=== PATIENT | female | born 1975 | race Caucasian/White ===

== ENCOUNTER 2019-10-02 09:54 | Day surgery (SDC) | payer SELFPAY ==
[2019-09-26 13:32] LABS: Hematocrit 37.7 % (37-47); Hemoglobin 11.4 g/dL (12.0-15.0); Mean Corp Hgb Conc 30.2 g/dL (32-36); Mean Corpuscular Hgb 24.3 pg (27.0-32.0); Mean Corpuscular Volume 80.2 fL (81-99); Mean Platelet Vol. 9.1 fl (6.2-12.0); Platelet Count 539 K/mm3 (150-450); RBC Distribution Width CV 15.2 % (11.6-14.6); RBC Distribution Width SD 43.9 fl (35.1-43.9); White Blood Count 8.7 K/mm3 (4.4-11.0)
[2019-09-26 13:41] LABS: International Normalized Ratio 1.1; Prothrombin Time (Protime)PT. 13.7 SECONDS (11.7-14.9)
[2019-09-26 13:43] LABS: Partial Thromboplast Time 27.5 Seconds (24.1-36.2)
--- NOTE | 2019-10-02 06:09 | HP.PCM_ITS ---
- Problem List (1) Abnormal uterine bleeding due to endometrial polyp Status: Acute History and Physical Date of Admission: 10/02/19 Surgical History and Physical Date: 10/02/2019 Name: JULIANA GANT Age: 44 Date of : 1975 Juliana Gant, a 44 year old female 6 0 0 0 6, presents for Hysteroscopy, dilation and curettage, Symphion polypectomy, Breonna Endometrial ablation on October 02, 2019 at 8:30. -- Juliana is being seen for pre op visit. Pt to have hs, D and C with Symphion and Breonna with Dr. Yahaira Stewart 10/02/19. Pt has irregular ad heavy cycles. US prior also showed polyp and fibroids. Medications and allergies are up to date. Consents signed and reviewed for surgery. AM Heavy menstrual bleeding with cramping which began 6 months ago. Juliana claims it started Gradually and has been present 6 months. It occurs With each men strual cycle. It is located in the Uterus. Juliana characterizes it to be downward to groin and pelvis.; Juliana characterizes it to be down to the legs. Juliana characterizes the quality cramping. Severity is moderate MEDICATIONS HISTORY: Patient is also takin. No Meds ALLERGIES: No Known Drug Allergies Infections - Proven immunity to Varicella Illnesses - none Accidents - no injuries of consequence Hospitalizations - Childbirth Review of Systems: GENERAL - Denies fever, or chills SKIN - Denies skin changes EYES - Denies visual changes EARS - Denies difficulty hearing NOSE - Denies nasal congestion or bleeding MOUTH - Denies sore throat or difficulty swallowing NECK - Denies pain or swelling RESPIRATORY - Denies shortness of breath or wheezing CARDIOVASCULAR - Denies palpitations or chest pain GASTROINTESTINAL - Denies nausea, vomiting, diarrhea, constipation GENITOURINARY - Denies dysuria, frequency of urination, incontinence of urine MUSCULOSKELETAL - Denies joint or muscle pain NEUROLOGICAL - Denies localized numbness or weakness PSYCHIATRIC - Denies depression or anxiety ENDOCRINE - Denies heat or cold intolerance, weight loss or gain HEMATO-IMMUNOLOGIC - Denies excesive bleeding with cuts SOCIAL HISTORY: Alcohol Use - denies drinking Smoking - denies smoking Diet - no special diet Lifestyle - Employer - Homemaker Illicit Drug Use - denies use of street drugs Sexual Activity - Spouse-Sig Other Name - Shakeel Spouse-Sig Other Occupation - Printer Children Name(s) - Carrie, Natty, Wei, Siddhartha, Sulma, Clover Control - NFP FAMILY HISTORY: MENSTRUAL HISTORY: LMP Known?- DefiniteAmount/Duration - 5-6 DAYS, Regularity - Irregular, Frequency - variable days, LMP - 09/03/19, Age Onset Menarche - 13 PAST PREGNANCIES: Total Pregnancies - 6; Full Term Pregnancies - 6; Premature - 0; Abortions, Induced - 0; Abortions, Spontaneous - 0; Ectopics - 0; Multiple Births - 0; Living Children - 6 SURGICAL HISTORY: 1. none ; - PHYSICAL EXAM BP- 130/70 Sitting, Right arm, regular cuff Temp- 98.2 Weight- 146.31400 lbs Height- 61.50 inch BMI:27.31 CONSTITUTIONAL - NAD, well nourished, and well developed SKIN - No rash, lesions, or ulcers HEENT - normocephalic, atraumatic, sclerae anicteric LUNGS - CTA x2 without wheezes, crackles or rales CARDIAC - Regular rate and rhythm without rubs, murmurs, or gallops NEUROLOGICAL - normal gait, normal balance, normal motor PSYCHIATRIC - A and O to time, place, person, mood and affect ULTRASOUND 09/09/19 UTERUS: 10 x 5.3 x 4.8cm. ENDOMETRIAL ECHO: 2.8mm anterior endo=1.2mm. posterior endo=1.6mm. RIGHT OVARY: 2.6 x 1.7 x 1.7cm. LEFT OVARY: 2.3 x 2.6 x 1.6cm. follicle seen measures 1 x 1.4 x 1.2cm. BLADDER: No bladder masses visualized. FREE FLUID: NONE. OTHER PERTINENT FINDINGS: endometrial polyp seen measures .6cm. small amount of fluid seen in endo. anterior subserous fibroid seen. ASSESSMENT/PLAN: 1. Excessive Bleeding In The Premenopausal Period and Polyp Of Corpus UterI Reviewed US findings, normal anatomy and menstrual physiology Indication for hysteroscopy, dilation and curettage, polypectomy reviewed. Procedural r/b reviewed, including potential for further surgery possibly hysterectomy. No plans for future childbearing at this time, discussed hormonal contraception including LVG IUD, endometrial ablation to further control bleeding apart from polypectomy Following discussion, will plan for hysteroscopy, dilation and curettage, polypectomy. NO ABLATION
[2019-10-02 10:32] LABS: Internal QC Validated? YES +Cl - CLEAR BKGD; Pregnancy, Urine Negative Negative
[2019-10-02 10:35] VITALS: BP 134/81; PULSE 77; RESP 18; TEMP 37.4; O2SAT 100; BMI 26.0
[2019-10-02] MEDS: Lactated Ringers 1,000 ML 100 ML IV (10:59)
--- NOTE | 2019-10-02 11:30 | EMB_PTH ---
PATIENT: KEITH HOYOS LOC: [facility] [place] U#:[id number] AGE/SX: 44/F ROOM: RE10/02/[address]: Dr. Juliet Stewart MD : 1975 BED: DIS: 10/02/2019 SPEC #: [id number] RECD: 10/02/19 13:14 STATUS: KEL ANGELICA #: [id number] BECKY: 10/02/19 11:[address]: Juliet Flowers DEPT: SURGICAL PATHOLOGY RECD BY: Wei Dunaway ENTERED: 10/02/19 13:51 SP TYPE: ENDOM BX/C CARIDAD DR: Dr. Don Burroughs MD Tissues: Endometrium, NOS Procedures: Surgery Specimen Level IV HEADER OPERATION: Hysteroscopy, Symphion D & C, Breonna PRE-OP DIAGNOSIS: Endometrial polyp TISSUE SUBMITTED: Endometrial curettings MICROSCOPIC DIAGNOSIS Endometrial curettings: Proliferative endometrium with glandular and stromal breakdown. Fragments of myometrium. SJ:terrie 10/03/19 MICROSCOPIC DESCRIPTION Slides are reviewed. GROSS DESCRIPTION Received in fixative is one container labeled with the patient's name and designated endometrial curettings. The specimen consists of multiple fragments of gil-pink hemorrhagic soft tissue that in aggregate measure 3 x 2.5 x 0.3 cm. The specimen is totally submitted in one cassette. / CLAUDIA:terrie 10/02/19 TC:5 CPT: 90182
--- NOTE | 2019-10-02 13:02 | OP.PCM_ITS ---
Problem List (1) Abnormal uterine bleeding due to endometrial polyp Status: Acute Report of Operation Date of Procedure: 10/02/19 Pre-Operative Diagnosis: Abnormal uterine bleeding, endometrial polyp Post-Operative Diagnosis: Abnormal uterine bleeding, endometrial polyp Surgery/Procedure Performed:: Hysteroscopy, dilation and curettage, polypectomy Description of Surgical Findings:: candidate for TVH Mild rectocele delinquent tax collection assistant: None Type of Anesthesia:: MAC Anesthesiologist: Charles Crabtree Specimen's removed: endometrial curettings Estimated Blood Loss (mL): 10 Fluids Replaced: 600 ml Description of Procedure: Patient was brought to the operating room and placed in dorsal supine position. She was induced under MAC anesthesia and repositioned into dorsal lithotomy. An examination under anesthesia was performed. The perineum was prepped and drape in sterile fashion. Straight catheterization of the bladder performed. A weight speculum was placed vaginally and the cervix grasped at the anterior lip using a Smith's tenaculum. The cervix was subsequently dilated and hysteroscopy performed using the Symphion scope demonstrating polypoid tissue on a tenuous stalk, with otherwise normal uterine cavity shape and normal tubal ostia bilaterally. The Symphion resectoscope was used to remove the polyp as well as sample the lining. The Symphion operative hysteroscope was removed and sharp curettage performed. Hysteroscopy was again performed demonstrating integrity of the uterine cavity. The procedure was complete. The hysteroscope was removed as was the tenaculum. The tenaculum site was hemostatic. The patient was repositioned into dorsal supine, awakened, and transferred to the recovery room without complication. Sponge counts were correct x 2. - Complications none - Admit VTE Documentation VTE Present on Admission: No VTE Mechan Device Prophylaxis: [facility] Pharm Prophylaxis ordered?: No
[2019-10-02 13:05] VITALS: BP 117/76; BP 134/81; PULSE 78; RESP 18; TEMP 36.2; O2SAT 100
[2019-10-02 13:10] VITALS: BP 121/67; BP 134/81; PULSE 72; RESP 18; O2SAT 100
[2019-10-02 13:15] VITALS: BP 112/72; BP 134/81; PULSE 73; RESP 18; O2SAT 100
[2019-10-02 13:20] VITALS: BP 122/75; BP 134/81; PULSE 77; RESP 18; TEMP 36.3; O2SAT 99
--- NOTE | 2019-10-02 14:58 | DCINST_ITS ---
Discharge Diet: No Restrictions Discharge Activity: Return to Normal Activity, May Shower, - - No tub bath for 1- 2 weeks May resume sexual activity in: - - 2-4 weeks Call your doctor if you observe: Fever of 101 or Higher, Inability to urinate, Inability to have a bowel movement, Using more than one pad per hour, Shortness of breath, Chest pain, Calf discomfort, Uncontrolled pain Allergies/Adverse Reactions: Allergies No Known Allergies Allergy (Verified 09/25/19 08:20) Medications to take at Discharge NK 09/25/19 Primary Care Physician: Don Burroughs MD [Primary Care Provider] - Test Results: Test results from this visit will be discussed in further detail at your follow- up appointment, if applicable. Please Follow Up With: Juliet Marie MD When: 2-4 weeks
[2019-10-02 15:10] VITALS: BP 134/81
== END 2019-10-02 15:21 | disposition home or self-care (01) ==
LOC: SDC 10:00 → AC 10:16
PROVIDERS: PCP Family Medicine; Referring Provider Obstetrics & Gynecology; Visit Provider Obstetrics & Gynecology
PROC: 0U5B8ZZ Destruction of Endometrium, Via Natural or Artificial Opening Endoscopic (ICD-10-PCS; CPT 58558; principal; 2019-10-02 11:15)
DX: N84.0 Polyp of corpus uteri (principal); N92.4 Excessive bleeding in the premenopausal period
CPT/HCPCS: 58558; 81025; 85027; 85610; 85730; 86850; 86900; 86901; 88305; J7120

== ENCOUNTER → 2019-12-31 14:53 | Outpatient (CLI) | payer SELFPAY ==
[2019-12-31 15:55] LABS: Absolute Lymphocyte Count 1.67 X10^3/uL (0.83-4.51); Absolute Neutrophil Count 7.1 X10^3/uL (2.0-7.7); Basophil# 0.01 X10^3/uL; Basophil% 0.1 % (0-1); Eosinophil# 0.07 X10^3/uL; Eosinophils% 0.7 % (0-5); Hematocrit 38.6 % (37-47); Hemoglobin 12.4 g/dL (12.0-15.0); Lymphocyte # 1.67 X10^3/ul (4.0); Lymphocyte % 17.7 % (19-41); Mean Corp Hgb Conc 32.1 g/dL (32-36); Mean Corpuscular Volume 83.9 fL (81-99); Mean Platelet Vol. 9.3 fl (6.2-12.0); Monocyte# 0.53 X10^3/uL; Monocyte% 5.6 % (0-10); NRBC Flagged by Analyzer 0 % (0-5); Neutrophil # 7.12 X10^3/uL (2.7-7.7); Neutrophil % 75.6 % (47-70); Platelet Count 452 K/mm3 (150-450); RBC Distribution Width CV 19.7 % (11.6-14.6); RBC Distribution Width SD 59.9 fl (35.1-43.9); White Blood Count 9.4 K/mm3 (4.4-11.0)
[2019-12-31 16:02] LABS: Color, Urine Yellow (Yellow); Glucose, Dipstick Normal (Normal); Ketone-Dipstick Negative (Negative); Leukocyte Esterase-Dipstick Negative /ul (Negative); Nitrite-Dipstick Negative (Negative); Occult Blood-Urine Negative /ul (Negative); Protein-Dipstick Negative (Negative); Specific Gravity, Urine 1.015 (1.002-1.030); Urine Bilirubin Dipstick Negative (Negative); Urine Clarity Clear (Clear); Urine Urobilinogen Normal (Normal)
[2019-12-31 16:14] LABS: Amphetamine Urine VISTA NEGATIVE (<1000 ng/mL); Barbiturate Urine VISTA NEGATIVE (< 200 ng/mL); Benzodiazepine Urine VISTA NEGATIVE (< 200 ng/mL); Cocaine Urine VISTA NEGATIVE (< 300 ng/mL); Ecstacy Urine VISTA NEGATIVE (< 500 ng/mL); Methadone Urine VISTA NEGATIVE (< 300 ng/mL); PCP Urine VISTA NEGATIVE (< 25 ng/mL); THC Urine VISTA NEGATIVE (< 50 ng/mL); Vista UDS pH Range 6
[2019-12-31 16:34] LABS: Thyroid Stim Hormone (TSH) 0.83 uIU/mL (0.358-3.74)
[2019-12-31 18:40] LABS: Chlamydia Trachomatis by PCR Negative (Negative); Neisserai gonorrhoeae by PCR Negative (Negative); Probe Check PASS; Sample Adequacy Control PASS; Specimen Processing Control PASS
[2020-01-01 00:55] LABS: Prenatal RPR NONREACTIVE (NONREACTIVE)
[2020-01-01 09:45] LABS: HIV - WCH Non-Reactive (Nonreactive); Hepatitis B Surface Antigen Non-Reactive (Nonreactive); Hepatitis C Antibody Non-Reactive (Nonreactive); Rubella IgG 117.6 IU/mL; Vitamin D,25 Hydroxy 19.4 ng/mL
[2020-01-05 16:21] LABS: HPV APTIMA, High Risk Negative (Negative)
== END ==
PROVIDERS: PCP Family Medicine; Visit Provider Obstetrics & Gynecology
DX: Z34.81 Encounter for supervision of other normal pregnancy, first trimester (principal); Z11.3 Encounter for screening for infections with a predominantly sexual mode of transmission; Z12.4 Encounter for screening for malignant neoplasm of cervix
CPT/HCPCS: 36415; 80307; 81002; 82306; 84443; 85025; 86703; 86762; 86803; 87340; 87491; 87591; 87624; 88175; G0145

== ENCOUNTER → 2020-04-15 13:48 | Outpatient (CLI) | payer SELFPAY ==
[2020-04-06 14:36] VITALS: BMI 29.2
--- NOTE | 2020-04-15 13:50 | ECHOD_ITS ---
Reason For Study: Chest pain Procedure This was a 2D Doppler, Color Flow transthoracic echocardiogram. Exam performed in department. Left Ventricle Normal LV size. The estimated ejection fraction is 65 %. No evidence for diastolic dysfunction. No regional wall motion abnormalities noted. Right Ventricle Normal RV size. Normal systolic function. Atria Normal left atrium. Normal right atrium. No doppler evidence for ASD. Mitral Valve There is no mitral valve stenosis. Trivial mitral valve insufficiency. Tricuspid Valve There is no tricuspid stenosis. Trivial tricuspid valve insufficiency. Pulmonary artery systolic pressure is 30 mmHg. Aortic Valve Trisinus/trileaflet aortic valve. There is no aortic stenosis. No aortic valve insufficiency. Pulmonic Valve There is no pulmonic valvular stenosis. No pulmonic valve insufficiency. Great Vessels Normal aortic root. Pericardium/Pleural No pericardial effusion. MMode/2D Measurements & Calculations LVIDd: 4.2 cm IVSd: 1.0 cm Ao root diam: 2.6 cm LVIDs: 2.2 cm LVPWd: 0.83 cm RVDd: 2.9 cm FS: 48.3 % LAV(MOD-bp): 43.7 ml LVAd ap4: 24.7 cm2 SV(MOD-sp4): 45.0 ml LAV(MOD-bp) Indexed: 25.2 ml/m2 EDV(MOD-sp4): 67.4 ml LAV(MOD-sp2): 50.7 ml EDV(sp4-el): 67.9 ml LAV(MOD-sp4): 32.3 ml LVAs ap4: 12.6 cm2 ESV(MOD-sp4): 22.4 ml ESV(sp4-el): 22.1 ml EF(MOD-sp4): 66.8 % EF(sp4-el): 67.5 % SV(sp4-el): 45.8 ml LA A4 area: 13.2 cm2 LA dimension(2D): 3.3 cm RA A4 area: 13.9 cm2 Doppler Measurements & Calculations MV E max олег: 112.3 cm/sec Lat Peak E' Олег: 12.7 cm/sec Med Peak E' Олег: 13.1 cm/sec MV A max олег: 68.6 cm/sec E/E' lat: 8.8 E/E' med: 8.6 MV E/A: 1.6 Ao V2 max: 157.7 cm/sec LV V1 max: 115.9 cm/sec PA V2 max: 105.8 cm/sec Ao max P.0 mmHg LV V1 max P.4 mmHg TR max олег: 225.8 cm/sec TR max P.5 mmHg Interpretation Summary The estimated ejection fraction is 65 %. No evidence for diastolic dysfunction. Trivial mitral valve insufficiency. Ordering Physician: Curt Barrios Referring Physician: Don Burroughs Performed By: Gloria Nagy RDCS
== END ==
PROVIDERS: PCP Family Medicine; Referring Provider Specialist; Visit Provider Specialist
DX: R07.9 Chest pain, unspecified (principal)
CPT/HCPCS: 93306

== ENCOUNTER → 2020-05-04 17:59 | Outpatient (CLI) | payer MEDICARE, SELFPAY ==
[2020-04-06 14:36] VITALS: BMI 29.2
== END ==
PROVIDERS: PCP Family Medicine; Referring Provider Obstetrics & Gynecology; Visit Provider Obstetrics & Gynecology
DX: U07.1 COVID-19 (principal)
CPT/HCPCS: 87635; C9803; U0003

== ENCOUNTER → 2020-05-21 10:57 | Outpatient (CLI) | payer SELFPAY ==
[2020-04-06 14:36] VITALS: BMI 29.2
[2020-05-21 15:58] LABS: Hematocrit 36.1 % (37-47); Hemoglobin 11.6 g/dL (12.0-15.0); Mean Corp Hgb Conc 32.1 g/dL (32-36); Mean Corpuscular Hgb 31.3 pg (27.0-32.0); Mean Corpuscular Volume 97.3 fL (81-99); Mean Platelet Vol. 9.2 fl (6.2-12.0); Platelet Count 412 K/mm3 (150-450); RBC Distribution Width CV 14.6 % (11.6-14.6); RBC Distribution Width SD 51.8 fl (35.1-43.9); Red Blood Count 3.71 M/mm3 (4.2-5.4); White Blood Count 8.4 K/mm3 (4.4-11.0)
[2020-05-21 16:05] LABS: Glucose Challenge Gest 1H 50g 136 mg/dL (70-140)
[2020-05-21 16:17] LABS: Vitamin D,25 Hydroxy 38.7 ng/mL
== END ==
PROVIDERS: PCP Family Medicine; Visit Provider Obstetrics & Gynecology
DX: Z34.83 Encounter for supervision of other normal pregnancy, third trimester (principal)
CPT/HCPCS: 36415; 82306; 82950; 85027

== ENCOUNTER 2020-06-08 01:15 | Observation (INO) | payer SELFPAY ==
[2020-04-06 14:36] VITALS: BMI 29.2
[2020-06-08 01:07] VITALS: O2SAT 99
[2020-06-08 01:08] VITALS: BP 146/79; PULSE 108; TEMP 36.9
[2020-06-08] MEDS: Lactated Ringers 1,000 ML 999 ML IV (01:10)
[2020-06-08 01:32] VITALS: BMI 29.2
[2020-06-08 01:33] VITALS: PULSE 110; O2SAT 100
[2020-06-08 01:38] VITALS: PULSE 105; O2SAT 99
[2020-06-08 01:43] VITALS: PULSE 101; O2SAT 99
[2020-06-08] MEDS: Betamethasone/Betamethasone 30 MG/5 ML Vial 12 MG IM (01:49)
[2020-06-08 01:53] LABS: ROM Internal Control Test YES-OK TO RESULT pt. (Internal QC)
[2020-06-08 01:54] LABS: ROM Patient Test POSITIVE (Negative)
[2020-06-08 01:59] LABS: Absolute Lymphocyte Count 2.56 X10^3/uL (0.83-4.51); Basophil# 0.02 X10^3/uL; Basophil% 0.2 % (0-1); Eosinophil# 0.13 X10^3/uL; Eosinophils% 1.1 % (0-5); Hematocrit 36.8 % (37-47); Hemoglobin 11.9 g/dL (12.0-15.0); Lymphocyte # 2.56 X10^3/ul (4.0); Lymphocyte % 22.2 % (19-41); Mean Corp Hgb Conc 32.3 g/dL (32-36); Mean Corpuscular Hgb 31.3 pg (27.0-32.0); Mean Corpuscular Volume 96.8 fL (81-99); Mean Platelet Vol. 9.4 fl (6.2-12.0); Monocyte# 0.71 X10^3/uL; Monocyte% 6.2 % (0-10); NRBC Flagged by Analyzer 0 % (0-5); Neutrophil # 8.02 X10^3/uL (2.7-7.7); Neutrophil % 69.6 % (47-70); Platelet Count 407 K/mm3 (150-450); RBC Distribution Width CV 14.5 % (11.6-14.6); RBC Distribution Width SD 51.3 fl (35.1-43.9); White Blood Count 11.5 K/mm3 (4.4-11.0)
--- NOTE | 2020-06-08 02:07 | HP.PCM_ITS ---
History and Physical Date of Admission: 06/08/20 History of Present Illness 44 yo at 33/2w, JANETH 07/25/20 by LMP, admitted for bleeding. Patient noted bleeding a little before midnight, continued since then. She came to labor and delivery via EMS. +FM. Reports intermittent contractions. Denies ARIZA, vision changes, chest pain, dyspnea, nausea emesis. No abdominal trauma. This is complicated by: advanced maternal age, grandmultiparity, resolved marginal previa on US 05/21/20. COVID positive on 05/12, negative rapid 06/08/20. Obstetrical History G1: FT G2: FT G3: FT G4: FT G5: FT G6:FT Past Medical History: Denies Medications PNV, ASA 81 mg, vitamin D Past Surgical History D&C, polypectomy, hysteroscopy Social History Tobacco use: denies Alcohol use: denies Illicit drug use: denies Labs Blood type: A pos Rubella: immune Varicella: unknown Hep B: negative HIV: negative RPR: nonreactive 1 hour GTT: 136 COVID: positive 05/12/20, rapid swab negative 06/08/20 GBS: pending Allergies NKDA Review of Systems General: alert and oriented HEENT: denies change of vision Heart/lungs: denies CP, SOB GI: denies nausea, vomiting, dysuria, diarrhea MSK: denies calf pain, tenderness Physical Exam Vital Signs Temp Pulse BP Pulse Ox 06/08/20 01:43 101 H 99 06/08/20 01:38 105 H 99 06/08/20 01:33 110 H 100 06/08/20 01:08 98.5 F 108 H 146/79 H 06/08/20 01:07 99 General: a&o x3, NAD HEENT: normocephalic, atraumatic Cardio: no JVD Resp: no increased work in breathing Abdomen: soft, gravid, nontender, not firm, no RUQ pain Extremities: minimal-moderate edema CE: closed, thick, high. Some blood on perineum. Thin bloody fluid on exam FHT: baseline 145s/mod variability/ + accels / neg decels [place]: irregular Breech, LIZZY 6 with 2x2 pocket per OBUS Labs Laboratory Results 06/08/20 06/08/20 01:35 01:15 WBC 11.5 H RBC 3.80 L Hgb 11.9 L Hct 36.8 L MCV 96.8 MCH 31.3 MCHC 32.3 RDW Std Deviation 51.3 H RDW Coeff of Adiel 14.5 Plt Count 407 MPV 9.4 Immature Gran % (Auto) 0.700 Neut % (Auto) 69.6 Lymph % (Auto) 22.2 [place] % (Auto) 6.2 Eos % (Auto) 1.1 Baso % (Auto) 0.2 Absolute Neuts (auto) 8.0 H Absolute Lymphs (auto) 2.56 Nucleated RBC % 0 Vag Amniotic Fld Detect POSITIVE H Assessment & Plan 44 yo at 33/2w, JANETH 07/25/20 by LMP, admitted for bleeding and potential rupture of membranes. This is complicated by: advanced maternal age, grandmultiparity, resolved marginal previa on US 05/21/20. Admit to L&D 1. Vagina bleeding -Patient had resolved placenta previa. No current evidence for abruption - patient comfortable in room, abdomen soft. status reassuring. Patient is having intermittent contractions, which seem to have spaced out after IVF hydration and voiding. Bleeding has slowed. On exam blood appeared to be thin bloody fluid. PROM plus completed which was positive, but this is likely secondary to contamination from blood. LIZZY is normal on bedside evaluation. Current working diagnosis: prelabor rupture of membranes vs vaginal bleeding without known cause. -Vitals stable, CBC stable. BSUS is breech. -Patient given celestone, >32w no indication for mag sulfate for neuroprotection at this time. -Will start PPROM latency antibiotics at this time. Ampicillin and azithromycin. Dispo: Transport to [facility] ER, spoke with Dr. Doug Lion accepting.
[2020-06-08] MEDS: Lactated Ringers 1,000 ML 50 ML IV (02:15)
[2020-06-08 02:18] LABS: International Normalized Ratio 1.1; Prothrombin Time (Protime)PT. 14.1 SECONDS (11.7-14.9)
[2020-06-08 02:19] LABS: Fibrinogen 464 mg/dl (203-444); Partial Thromboplast Time 26.3 Seconds (24.1-36.2)
[2020-06-08 02:44] LABS: Group B Strep DNA By PCR Negative (Negative); Internal Control PASS; Probe Check PASS; Specimen Processing Control PASS
[2020-06-08 03:13] VITALS: BP 130/68; PULSE 111; TEMP 36.4; O2SAT 97
--- NOTE | 2020-06-08 05:09 | NURSING ---
patient transported to [facility] triage unit via ambulance at [id number]
== END 2020-06-08 03:55 | disposition short-term general hospital (02) ==
LOC: WPOUT 01:17 → WP 01:18
PROVIDERS: Admitting Provider Student in an Organized Health Care Education/Training Program; PCP Family Medicine; Referring Provider Student in an Organized Health Care Education/Training Program; Visit Provider Student in an Organized Health Care Education/Training Program
DX: O46.8X3 Other antepartum hemorrhage, third trimester (principal); Z3A.33 33 weeks gestation of pregnancy; O09.523 Supervision of elderly multigravida, third trimester; O09.43 Supervision of pregnancy with grand multiparity, third trimester; Z86.19 Personal history of other infectious and parasitic diseases
CPT/HCPCS: 96361; 96365; 96367; 96372; 59025; 59050; 76815; 84112; 85025; 85384; 85610; 85730; 86850; 86900; 86901; 87081; 87426; 87635; 87653; 99218; J7120; G0378; J0702; U0002

== ENCOUNTER 2020-06-11 23:21 | Emergency (ER) | payer OTHER, SELFPAY ==
[2020-06-11 23:22] VITALS: BP 127/83; PULSE 87; RESP 16; TEMP 36.3; O2SAT 99; BMI 29.2
--- NOTE | 2020-06-11 23:36 | VDLE_ITS ---
Reason For Study: pain (prox medial thigh) RIGHT LEFT CFV is compressible, spontaneous, phasic, GSV is normal. competent and demonstrates normal CFV is compressible, spontaneous, phasic, augmentation. competent, and demonstrates normal Procedure augmentation. This is a venous duplex using B-mode, color FV is compressible, spontaneous, phasic, flow and spectral Doppler. competent and demonstrates normal Exam performed portable in ED. augmentation. The exam was diagnostic. POP V is compressible, spontaneous, phasic, A preliminary report was called and/or faxed competent and demonstrates normal to Priyanka Salcedo @ 9:25 am. augmentation. T/P Trunk is compressible. PTV is compressible. LT PerV is compressible. A very small segment of a branch of GSV (varicose vein) is non-compressible and hyperechoic. Interpretation Summary Deep veins of the left lower extremity are patent and compressible segmentally. There is no evidence of left lower extremity deep vein thrombosis. Valvular competence appears intact within the proximal deep venous system on the left . The left great saphenous vein appears patent and compressible segmentally. Chronic venous changes are noted in a small segment of a branch of the left great saphenous vein. Ordering Physician: Nile Ramon Referring Physician: Don Burroughs Performed By: Rekha Hawkins, DEEPTICS, RVT
--- NOTE | 2020-06-11 23:37 | ED.DCSUM_ITS ---
History of Present Illness Chief Complaint: Lower Extremity Injury Informant: Patient Onset: Today Context: Sudden Onset Timing: Continuous Quality: Pain and redness Location: Proximal medial left thigh Current Severity: Mild Maximum Severity: Moderate Worsened by: Palpation Relieved by: Nothing Associated Symptoms: History of vaginal bleeding due to placental disruption and tear Narrative: Patient is a 44-year-old G7, P6 Ab0 female who was admitted to [facility] on Sunday released yesterday. She was admitted for vaginal bleeding due to placental tear and disruption. Patient denies chest pain or shortness of breath. Patient denies prior history of VTE. She is and 35 weeks gestation. Prior similar symptoms: No Recent Illness/Hospitalization: Yes - Past Medical History (1) Placental tear Status: Acute Past Medical History - Allergies and Home Meds Allergies/Adverse Reactions: Allergies No Known Allergies Allergy (Verified 06/11/20 23:25) Primary Care Physician: Don Burroughs MD [Primary Care Provider] - Prior records reviewed: Yes Past Medical History: - - Septal disruption and tear causing vaginal bleeding Lives: Spouse/ Significant Other, With Family Smoking Status: Never smoker Alcohol: None Drugs: None Review of Systems General: Denies: Chills, Fever, Malaise, Subjective, Sweats ENT: Denies: Rhinorrhea, Sore throat Cardiovascular: Denies: Chest pain, Palpitations Respiratory: Denies: Dyspnea, Cough, Sputum Gastrointestinal: Denies: Abdominal pain, Nausea, Vomiting Musculoskeletal: Reports: Extremity Pain. Denies: Myalgias, Arthralgias, Neck pain, Back pain, Swelling Skin: Denies: Rash, Wounds Hematologic: Denies: Easy bruising, Easy bleeding Allergy: Denies: Uticaria Physical Exam Vital Signs/Narrative: Vital Signs Temp Pulse Resp BP Pulse Ox 06/11/20 23:22 97.3 F L 87 16 127/83 H 99 Inital Vital Signs reviewed: Yes General: Well nourished, Well developed Head: Normocephalic, Atraumatic Eyes: Perrl, EOMI. Negative for: Pale conjunctiva Cardiovascular: Regular rate, Regular rhythm, No murmurs, Normal S1, Normal S2 Respiratory: No distress, CTA bilaterally Abdomen: Soft, Nontender, Nondistended, Normal bowel sounds, No masses, - - No height at approximately the xiphoid process Extremities: No edema, Tenderness - There is redness with palpable cord proximal medial left thigh concern this is near the junction of the greater saphenous and deep venous system.. Negative for: Nontender Skin: Normal color, No rash Neurological: Alert, Oriented x3, Cranial nerves II-XII grossly intact, Normal Strength, Normal Sensation Psychological: Normal affect Diagnostic/Tx/Re-eval - Medical Decision Making Patient with presumed DVT greater saphenous. Will obtain ultrasound of the leg for tomorrow morning since the control room technician has left. Reluctant to treat with anticoagulant in light of vaginal bleeding due to placental tear/disruption. Will contact patient's SLABBING MACHINE OPERATOR. Case was discussed with Dr. Raudel Snyder. He recommended Lovenox if the venous duplex study in the morning confirms/indicates a DVT. Patient was made aware of plan and reason for delay. If you have a proven DVT or clot in the greater saphenous within 10 cm of the deep venous system you will require anticoagulation therapy. He recommended Lovenox. If patient requires anticoagulation OB on-call needs to be contacted. ED Disposition - Plan for ED Patient: Disposition: Home or Assisted Living Diagnosis: Thrombophlebitis during in third trimester Instructions: ED Phlebitis Superficial Referrals: Don Burroughs MD [Primary Care Provider] - Additional Instructions: You will need to contact the vascular lab in the morning to arrange for appointment for venous duplex study. Case was discussed with Dr. Snyder who was on-call for the group. Plan is to get ultrasound. If you have a proven DVT or clot in the greater saphenous within 10 cm of the deep venous system you will require anticoagulation therapy. He recommended Lovenox. If patient requires anticoagulation OB on-call needs to be contacted.
--- NOTE | 2020-06-12 00:53 | CCN.REFER ---
0040 DR.CHRISTINA HERNÁNDEZ PAGED, VOICEMAIL LEFT. NO RETURN CALL FROM DR. ANDREW HERNÁNDEZ OR DR. BRENDEN JOY CURRENTLY
[2020-06-12 03:46] VITALS: BP 128/78; PULSE 72; RESP 16; O2SAT 98
--- NOTE | 2020-06-12 09:23 | ED.DEP ---
ED Disposition - Plan for ED Patient: Disposition: Home or Assisted Living Diagnosis: Leg edema, left, Thrombophlebitis during in third trimester Instructions: ED Phlebitis Superficial Referrals: Don Burroughs MD [Primary Care Provider] - 2 Days
[2020-06-12 09:29] VITALS: BP 121/70; PULSE 92; RESP 20
== END 2020-06-12 10:18 | disposition home or self-care (01) ==
PROVIDERS: Emergency Provider Emergency Medicine; PCP Family Medicine
DX: O26.893 Other specified pregnancy related conditions, third trimester (principal); M79.652 Pain in left thigh; Z3A.35 35 weeks gestation of pregnancy; Z86.718 Personal history of other venous thrombosis and embolism
CPT/HCPCS: 93971; 99282

== ENCOUNTER → 2020-06-30 | Outpatient (CLI) | payer SELFPAY ==
[2020-06-29 15:04] VITALS: BMI 30.5
== END | disposition home or self-care (01) ==
LOC: LABSPEC 16:28
PROVIDERS: PCP Family Medicine; Visit Provider Obstetrics & Gynecology
DX: Z36.85 Encounter for antenatal screening for Streptococcus B (principal)
CPT/HCPCS: 87081

== ENCOUNTER 2020-07-15 19:10 | Inpatient (IN) | payer SELFPAY ==
[2020-06-29 15:04] VITALS: BMI 30.5
[2020-07-15 19:42] VITALS: BMI 30.8
[2020-07-15 20:17] LABS: Absolute Lymphocyte Count 1.82 X10^3/uL (0.83-4.51); Absolute Neutrophil Count 5.9 X10^3/uL (2.0-7.7); Basophil# 0.01 X10^3/uL; Basophil% 0.1 % (0-1); Eosinophil# 0.08 X10^3/uL; Eosinophils% 0.9 % (0-5); Hematocrit 33.7 % (37-47); Hemoglobin 11.4 g/dL (12.0-15.0); Lymphocyte # 1.82 X10^3/ul (4.0); Lymphocyte % 21.3 % (19-41); Mean Corp Hgb Conc 33.8 g/dL (32-36); Mean Corpuscular Volume 91.6 fL (81-99); Mean Platelet Vol. 9.5 fl (6.2-12.0); Monocyte# 0.64 X10^3/uL; Monocyte% 7.5 % (0-10); NRBC Flagged by Analyzer 0 % (0-5); Neutrophil # 5.93 X10^3/uL (2.7-7.7); Neutrophil % 69.6 % (47-70); Platelet Count 385 K/mm3 (150-450); RBC Distribution Width CV 13.7 % (11.6-14.6); RBC Distribution Width SD 46.1 fl (35.1-43.9); Red Blood Count 3.68 M/mm3 (4.2-5.4); White Blood Count 8.5 K/mm3 (4.4-11.0)
[2020-07-15 20:30] VITALS: BP 131/75; PULSE 87; PULSE 89; TEMP 36.9; O2SAT 99
--- NOTE | 2020-07-15 20:38 | PCM.HPOB.BLA ---
History and Physical Date of Admission: 07/15/20 Chief complaint: Decreased movement History of present illness: 45-year-old G7, P6 at 38 weeks and 4 days with JANETH: 07/25/2020 by LMP confirmed with 6-week ultrasound with decreased movement for induction of labor per Dr. Yahaira Stewart. Denies headache, visual changes, nausea vomiting, chest pain, shortness of breath, right upper quadrant pain. Obstetric history: G1- G6 spontaneous vaginal delivery at term Past medical history: None Past surgical history: Hysteroscopy D&C Medications: vitamin, aspirin Allergies: No known drug allergies Social history: No smoking, alcohol use, drug use Review of systems: Besides the above pertinent positives a full review of systems was performed and found to be negative Physical exam: Vital Signs Temp Pulse BP Pulse Ox 07/15/20:17 86 144/66 H 07/15/20 21:16 98.2 F 99 07/15/20 20:30 98.4 F 87 131/75 H 99 General: Normal-appearing no acute distress HEENT: Normocephalic atraumatic no cervical lymphadenopathy Cardiac: Regular rate and rhythm no murmurs rubs or gallops Respiratory: Clear to auscultation bilaterally no wheezes rales or crackles Abdomen: Soft nontender gravid. Positive bowel sounds Pelvic exam: Cervical exam: 3/50/-3 heart rate tracin/moderate variability/positive accelerations/negative decelerations [place]: Few contractions Extremities: No peripheral edema normal peripheral pulses Psych: Normal affect normal demeanor nonpressured speech Mom's Labs & Results 07/15/20 07/15/20 20:00 20:00 WBC 8.5 RBC 3.68 L Hgb 11.4 L Hct 33.7 L MCV 91.6 MCH 31.0 MCHC 33.8 RDW Std Deviation 46.1 H RDW Coeff of Adiel 13.7 Plt Count 385 MPV 9.5 Immature Gran % (Auto) 0.600 Neut % (Auto) 69.6 Lymph % (Auto) 21.3 [place] % (Auto) 7.5 Eos % (Auto) 0.9 Baso % (Auto) 0.1 Absolute Neuts (auto) 5.9 Absolute Lymphs (auto) 1.82 Nucleated RBC % 0 Blood Type Pending Antibody Screen Pending Labs Blood Type: A RH: POSITIVE RPR/VDRL/Syphilis Nonreactive Rubella status Immune HbSAg Negative Date Done: 12/31/19 Chlamydia Negative Gonorrhea Negative HIV/AIDS Non-Reactive Group B Strep: Negative Diagnostic imaging: Bedside ultrasound: cephalic Assessment plan: 45-year-old G7, P6 at 38 weeks and 4 days for induction of labor for AMA and persistent decreased movement per Dr. Yahaira Stewart. I will continue as covering physician in Dr. Yahaira Stewart's absence. -[facility] -Cytotec induction -Routine orders -Anesthesia to see
[2020-07-15] MEDS: Lactated Ringers 1,000 ML 50 ML IV (21:09)
[2020-07-15] MEDS: miSOPROStol 25 MCG TABLET PO (21:15)
[2020-07-15 21:16] VITALS: TEMP 36.8; O2SAT 99
[2020-07-15 21:17] VITALS: BP 144/66; PULSE 86
[2020-07-16] VITALS (80 sets, daily range): BP systolic 58–149; BP diastolic 31–76; PULSE 57–146; RESP 16–18; TEMP 36.2–37.4; O2SAT 80–100
[2020-07-16] MEDS: Acetaminophen 500 MG Tablet PO ×3 (01:45→20:09)
[2020-07-16] MEDS: Oxytocin 30 units/NS 500 ml 30 UNITS/500 ML IV.SOLN IV (05:41)
[2020-07-16] MEDS: Lactated Ringers 500 ML 999 ML IV (08:53)
[2020-07-16] MEDS: Dextrose 5%-Lactated Ringers 1,000 ML 200 ML IV (09:25)
[2020-07-16] MEDS: fentaNYL-bupivacaine (epidural) 100 ML BAG EPIDURAL (09:57)
[2020-07-16] MEDS: Amnioinfusion- 0.9% NS 1,000 ML IV.SOLN. 1000 ML INTRA-UTER (11:37)
[2020-07-16] MEDS: Oxytocin 30 units/NS 500 ml 30 UNITS/500 ML IV.SOLN 334 UNITS IV (12:08)
--- NOTE | 2020-07-16 14:00 | PCM.OPRPT ---
Problem List (1) (spontaneous vaginal delivery) Status: Acute Vaginal Delivery Maternal Presentation: Medically Indicated Induction Method of Induction: Pitocin, Amniotomy, Cytotec Amniotic Membrane Rupture Type: Artificial Rupture of Membrane time: 07/16/20 0840h Amniotic Fluid Description: Lightly stained meconium Final JANETH: 07/25/20 Final JANETH Source: US <20 weeks Gestational age: 38 Weeks and 5 Days doctor who attended delivery (if requested by OB): Marlen Manzo Date of Procedure: 07/16/20 Pre-Operative Diagnosis: 38 5/7 wga, decreased movement, AMA Post-Operative Diagnosis: 38 5/7wga, decerased movement, AMA Surgery/ Procedure Performed: Spontaneous Vaginal Delivery Anesthesiologist: Padmini Orozco Type of Anesthesia: Epidural Description of Procedure: Patient was FD/+1 on my arrival with Cat II FHR - she pushed with delivery of male infant in FABIO. mouth and nares were bulb suctioned at the perineum and nuchal cord reduced x 1. Infant was placed on the maternal abdomen and further attended by nursery personnel. The cord was doubly clamped and cut at approximately 3 minutes of life. Cord gases obtained. The placenta delivered spontaneously and appeared intact apart from small amount of detached membranes which were retrieved with vaginal and intrauterine exam. Fundus was firm and nontender. A second degree perineal laceration was repaired with 3-0 Vicryl Rapide with excellent hemostasis attained. Sponge and needle counts correct x 2. Presentation: Vertex Placental Delivery Description: Spontaneous Placenta Disposition: [facility] Cord Vessel Description: 3 Vessels Nuchal Cord Compression: Without compression Cord Gases drawn per routine: ABG, VBG Cord Entanglement: Around neck x 1, loose Drain: Henriquez to straight drain Estimated Blood Loss: 600 ml Infant A gender: Male (1 minute): 8 (5 minute): 9 Episiotomy Description: None Laceration: None Medications given after delivery: IV Pitocin Complications: None
[2020-07-16 14:36] LABS: Absolute Lymphocyte Count 0.98 X10^3/uL (0.83-4.51); Absolute Neutrophil Count 14.9 X10^3/uL (2.0-7.7); Basophil# 0.02 X10^3/uL; Basophil% 0.1 % (0-1); Eosinophil# 0.02 X10^3/uL; Eosinophils% 0.1 % (0-5); Hematocrit 25.9 % (37-47); Hemoglobin 8.4 g/dL (12.0-15.0); Lymphocyte # 0.98 X10^3/ul (4.0); Lymphocyte % 5.8 % (19-41); Mean Corp Hgb Conc 32.4 g/dL (32-36); Mean Corpuscular Hgb 31.2 pg (27.0-32.0); Mean Corpuscular Volume 96.3 fL (81-99); Mean Platelet Vol. 9.5 fl (6.2-12.0); Monocyte# 0.99 X10^3/uL; Monocyte% 5.8 % (0-10); NRBC Flagged by Analyzer 0 % (0-5); Neutrophil # 14.93 X10^3/uL (2.7-7.7); Neutrophil % 87.6 % (47-70); Platelet Count 303 K/mm3 (150-450); RBC Distribution Width CV 13.8 % (11.6-14.6); RBC Distribution Width SD 48.4 fl (35.1-43.9); Red Blood Count 2.69 M/mm3 (4.2-5.4)
[2020-07-16 14:48] LABS: Partial Thromboplast Time 24.6 Seconds (24.1-36.2)
[2020-07-16 14:49] LABS: Fibrinogen 291 mg/dl (203-444)
[2020-07-16] MEDS: Ibuprofen 600 MG Tablet PO (15:53)
[2020-07-16] MEDS: 0.9% Saline Lock 10 ML Syringe IV (15:55)
[2020-07-16 18:35] LABS: Hemoglobin 7.8 g/dL (12.0-15.0); Mean Corp Hgb Conc 33.9 g/dL (32-36); Mean Corpuscular Volume 91.3 fL (81-99); Mean Platelet Vol. 9.3 fl (6.2-12.0); Platelet Count 259 K/mm3 (150-450); RBC Distribution Width CV 13.6 % (11.6-14.6); Red Blood Count 2.52 M/mm3 (4.2-5.4); White Blood Count 12.9 K/mm3 (4.4-11.0)
[2020-07-16 18:47] LABS: Fibrinogen 300 mg/dl (203-444)
[2020-07-16] MEDS: Lactated Ringers 1,000 ML 50 ML IV (19:53)
--- NOTE | 2020-07-16 21:00 | NURSING ---
Pt previously lightheaded when ambulated to bathroom. Pt stating she needs to void, up to bedside commode at this time with x1 RN assist. Void 900ml. Pt tolerated well. Uterus midline after void.
[2020-07-17] VITALS (14 sets, daily range): BP systolic 102–124; BP diastolic 35–67; PULSE 74–108; RESP 16–18; TEMP 35.9–37.2; O2SAT 95–98
--- NOTE | 2020-07-17 02:25 | NURSING ---
Report given to Sofie ROACH, taking over and pt care at this time.
--- NOTE | 2020-07-17 02:41 | NURSING ---
This RN assuming care of patient and infant at this time. Report received from Lily ROACH.
[2020-07-17] MEDS: Ibuprofen 600 MG Tablet PO ×2 (03:22→16:04)
--- NOTE | 2020-07-17 04:00 | NURSING ---
0305- This RN received report from Mitch Foster RN and is now resuming care.
[2020-07-17] MEDS: Acetaminophen 500 MG Tablet PO (06:02)
[2020-07-17 06:16] LABS: Hematocrit 19.4 % (37-47); Hemoglobin 6.5 g/dL (12.0-15.0); Mean Corp Hgb Conc 33.5 g/dL (32-36); Mean Corpuscular Hgb 30.8 pg (27.0-32.0); Mean Corpuscular Volume 91.9 fL (81-99); Mean Platelet Vol. 9.3 fl (6.2-12.0); Platelet Count 235 K/mm3 (150-450); RBC Distribution Width CV 13.6 % (11.6-14.6); RBC Distribution Width SD 45.7 fl (35.1-43.9); Red Blood Count 2.11 M/mm3 (4.2-5.4); White Blood Count 12.2 K/mm3 (4.4-11.0)
--- NOTE | 2020-07-17 06:36 | DCINST_ITS ---
Discharge Diet: No Restrictions Discharge Activity: Return to Normal Activity, May Shower, May Take a Tub Bath, - - May drive in 5-7 days May resume sexual activity in: 6 weeks Lifting Restrictions: 20 lb Suture Line Care: Avoid Pulling/Pushing Additional Instructions: If you experience any of the following, contact your healthcare provider. * Bleeding that soaks a pad every hour for 2 hours * Fever 100.4 or higher * Unrelieved incision or abdominal pain * Swelling, redness, discharge or bleeding from your incision or episiotomy site * Your incision begins to separate * Problems urinating (including inability to urinate or burning while urinating). * Visual changes * Severe headache * Flu-like symptoms * Pain or redness in one of both of your breasts * Pain, warmth, tenderness or swelling in your legs, especially the calf area * Frequent nausea and vomiting * Symptoms of depression or anxiety If you experience any of the following, call 911 or go to the nearest Emergency Room. * Chest pain * Problems breathing * Seizure activity * Partial or complete paralysis of a body part, slurred speech, weakness or drooping of the face, or a sudden inability to walk or hold your balance Allergies/Adverse Reactions: Allergies No Known Allergies Allergy (Verified 06/29/20 15:10) Medications to take at Discharge cholecalciferol (vitamin D3) 125 mcg (5,000 unit) tablet 125 mcg PO DAILY 04/06/20 vits no.126-ferrous fum 28 mg iron-folic acid 800 mcg tablet 1 tab PO DAILY 04/06/20 Horse [place] Seed [Horse [place]] 1 tab PO DAILY 06/08/20 ascorbic acid (vitamin C) 500 mg tablet 500 mg PO DAILY 06/29/20 zinc 50 mg tablet 50 mg PO DAILY 06/29/20 Ferrous Sulfate 325 mg PO BID #60 tab 07/17/20 Please Follow Up With: Juliet Flowers MD When: 6 weeks Primary Care Physician: Don Burroughs MD [Primary Care Provider] - Test Results: Test results from this visit will be discussed in further detail at your follow- up appointment, if applicable.
--- NOTE | 2020-07-17 07:00 | PN.OBGYN_ITS ---
Patient Problems: Active and Suspected Problems (Last Reviewed 06/29/20 @ 16:[address] Curt Barrios MD) (spontaneous vaginal delivery) (Acute) Subjective: Reports lightheadedness while out of bed yesterday and heart racing. She feels fatigued. Denies heavy lochia, but reports she thought her bleeding was heavier yesterday than normal. She denies chest pain, shortness of breath or heartracing this morning. Denies painfulness, but notes cramping with nursing. going well. Objective: AVSS - Physical Exam Vitals/I&O's: Vital Signs Temp Pulse Resp BP Pulse Ox 97.9 F 87 16 107/57 L 97 07/17/20 03:16 07/17/20 03:16 07/17/20 03:16 07/17/20 03:16 07/17/20 00:15 Oxygen Delivery Method Room Air Weight: 76.4 kg Body Mass Index (BMI) 30.8 Intake and Output for Last 24 Hours 07/15/20 07/16/20 07/17/20 23:59 23:59 23:59 Intake Total 2637.19 / 2637.19 Output Total 700 / 700 850 / 850 Balance 1937.19 / 1936.19 -850 / -850 General: Alert, Oriented x3, Cooperative, No apparent distress HEENT: Atraumatic, Normocephalic Lungs: Clear to auscultation, Normal air movement Cardiovascular: Regular rate, Regular Rhythm, Normal S1, Normal S2 Abdomen: Soft, Non Tender, Non-Distended Extremities: No edema, No Calf Tenderness Neurological: Neuro grossly intact Psych/Mental Status: Normal Affect, Appropriate, Alert and oriented to time, place, person, mood and affect Laboratory Results 07/16/20 14:15: WBC 17.0 H, RBC 2.69 L, Hgb 8.4 L, Hct 25.9 L, MCV 96.3 D, MCH 31.2, MCHC 32.4, RDW Std Deviation 48.4 H, RDW Coeff of Adiel 13.8, Plt Count 303, MPV 9.5, Immature Gran % (Auto) 0.600, Neut % (Auto) 87.6 H, Lymph % (Auto) 5.8 L, [place] % (Auto) 5.8, Eos % (Auto) 0.1, Baso % (Auto) 0.1, Absolute Neuts (auto) 14.9 H, Absolute Lymphs (auto) 0.98, Nucleated RBC % 0 07/16/20 14:15: APTT 24.6, Fibrinogen 291 07/16/20 18:30: WBC 12.9 H, RBC 2.52 L, Hgb 7.8 L, Hct 23.0 L, MCV 91.3 D, MCH 31.0, MCHC 33.9, RDW Std Deviation 46.0 H, RDW Coeff of Adiel 13.6, Plt Count 259, MPV 9.3 07/16/20 18:30: Fibrinogen 300 07/17/20 06:09: WBC 12.2 H, RBC 2.11 L, Hgb 6.5 L, Hct 19.4 L, MCV 91.9, MCH 30.8, MCHC 33.5, RDW Std Deviation 45.7 H, RDW Coeff of Adiel 13.6, Plt Count 235, MPV 9.3 Current Medications Acetaminophen (Acetaminophen 500 Mg Tablet) 500 - 1,000 mg PO Q6H PRN PRN PRN Reason: Pain Score 1-3 Last Admin: 07/17/20 06:02 Dose: 1,000 mg Documented by: Bisacodyl (Bisacodyl 10 Mg Suppository) 10 mg RECTAL UD PRN PRN Reason: If no BM Dibucaine (Dibucaine 30 Gm Tube) 1 applic TOPICAL TID PRN PRN; Protocol PRN Reason: Discomfort Hydrocortisone (Hydrocortisone 2.5% Crm) 1 applic TOPICAL TID PRN PRN; Protocol PRN Reason: Discomfort Lactated Ringer's () 1,000 mls @ 50 mls/hr IV .Q20H SARKIS Last Admin: 07/16/20 19:53 Dose: 50 mls/hr Documented by: Ibuprofen (Ibuprofen 600 Mg Tablet) 600 mg PO Q6H PRN PRN PRN Reason: Pain Score 1-3 Last Admin: 07/17/20 03:22 Dose: 600 mg Documented by: Methylergonovine Maleate (Methylergonovine 0.2 Mg/Ml Ampul) 0.2 mg IM X1 PRN PRN Reason: Excess bleeding/uterine atony Ondansetron HCl (Ondansetron 4 Mg/2 Ml Vial) 4 mg IV Q4H PRN PRN PRN Reason: NAUSEA Senna/Docusate Sodium (Senna/Docusate Sodium 1 Tablet) 1 - 2 tablet PO DAILY PRN PRN PRN Reason: Constipation Simethicone (Simethicone 80 Mg Tablet) 80 mg PO PCHS PRN PRN Reason: Indigestion/Stomach pain Sodium Chloride (0.9% Saline Lock 10 Ml Syringe) 5 - 15 ml IV UD PRN PRN Reason: SALINE FLUSH Last Admin: 07/16/20 15:55 Dose: 10 ml Documented by: Medical Necessity - Tobacco Use Smoking Status: Never smoker Assessment/Plan All Active Problems (Last Reviewed 06/29/20 @ 16:[address] Curt Barrios MD) (spontaneous vaginal delivery) (Acute) Placental tear (Acute) Palpitations (Acute) (Acute) Chest pain (Acute) Abnormal uterine bleeding due to endometrial polyp (Acute) 45yo PPD#1 s/p complicated by acute blood loss anemia, PPH -Advised blood transfusion - reviewed transfusion related r/b/i - pt in agreement -T&C x 2 U PRBC -Rpt CBC in am - -Routine care -Anticipate d/c home tomorrow
[2020-07-17] MEDS: DiphenhydrAMINE 25 MG Capsule PO (07:25)
--- NOTE | 2020-07-17 10:16 | NURSING ---
traffic warehouse supervisor called to discuss blood tubing, this RN made aware that tubing operates only via gravity flow. Blood not currently flowing by gravity to patient IV. Will assess patient for new IV site.
--- NOTE | 2020-07-17 10:29 | NURSING ---
This RN unable to obtain IV access at this time. Charge nurse called to assist. RN Ashely in room to attempt IV at this time. Unable to obtain IV access. Accident Report Clerk on floor. Will continue to attempt to obtain IV access. Patient stable and tolerating IV attempts well.
--- NOTE | 2020-07-17 10:55 | NURSING ---
duty officer, Victoria in room to attempt IV start. Blood bank contacted and per Blood bank okay to start blood but it must be done infusing by 1358 or remaining blood must be thrown away.
[2020-07-17] MEDS: 0.9% Saline Lock 10 ML Syringe IV ×3 (11:04→15:35)
--- NOTE | 2020-07-17 16:43 | NURSING ---
patient reports feeling slight heaviness in chest. vitals obtained. lungs clear on auscultation. infusion rate reduced to 100cc/hr. will continue to closely monitor.
[2020-07-18 02:00] VITALS: BP 114/55; PULSE 93; RESP 18; TEMP 36.4
[2020-07-18] MEDS: Ibuprofen 600 MG Tablet PO ×2 (02:09→12:36)
[2020-07-18 04:33] LABS: Absolute Lymphocyte Count 2.37 X10^3/uL (0.83-4.51); Basophil# 0.02 X10^3/uL; Basophil% 0.2 % (0-1); Eosinophil# 0.22 X10^3/uL; Eosinophils% 1.8 % (0-5); Hematocrit 26.7 % (37-47); Hemoglobin 9.1 g/dL (12.0-15.0); Lymphocyte # 2.37 X10^3/ul (4.0); Mean Corp Hgb Conc 34.1 g/dL (32-36); Mean Corpuscular Hgb 30.7 pg (27.0-32.0); Mean Corpuscular Volume 90.2 fL (81-99); Mean Platelet Vol. 9.2 fl (6.2-12.0); Monocyte# 0.72 X10^3/uL; Monocyte% 5.8 % (0-10); NRBC Flagged by Analyzer 0 % (0-5); Neutrophil # 9.01 X10^3/uL (2.7-7.7); Neutrophil % 72.2 % (47-70); Platelet Count 265 K/mm3 (150-450); RBC Distribution Width CV 15.1 % (11.6-14.6); RBC Distribution Width SD 48.8 fl (35.1-43.9); Red Blood Count 2.96 M/mm3 (4.2-5.4); White Blood Count 12.5 K/mm3 (4.4-11.0)
[2020-07-18 08:54] VITALS: BP 114/51; PULSE 85; RESP 16; TEMP 36.3; O2SAT 97
--- NOTE | 2020-07-18 09:51 | PN.OBGYN_ITS ---
Patient Problems: Active and Suspected Problems (Last Reviewed 06/29/20 @ 16:[address] Curt Barrios MD) (spontaneous vaginal delivery) (Acute) Subjective: Patient without complaints. Orthostatic symptoms resolved after 2 units of packed red blood cells. Reports minimal vaginal bleeding. Wants to go home. - Physical Exam Vitals/I&O's: Vital Signs Temp Pulse Resp BP Pulse Ox 97.3 F L 85 16 114/51 L 97 07/18/20 08:54 07/18/20 08:54 07/18/20 08:54 07/18/20 08:54 07/18/20 08:54 Oxygen Delivery Method Room Air Weight: 168 lb 6.931 oz Body Mass Index (BMI) 30.8 Intake and Output for Last 24 Hours 07/16/20 07/17/20 07/18/20 23:59 23:59 23:59 Intake Total 2637.19 / 2637.19 2649.17 / 2649.17 Output Total 700 / 700 3700 / 3700 Balance 1937.19 / 1937.19 -1050.83 / -1050.83 Laboratory Results 07/15/20 20:00: Crossmatch See Detail 07/18/20 04:20: WBC 12.5 H, RBC 2.96 L, Hgb 9.1 L, Hct 26.7 L, MCV 90.2, MCH 30.7, MCHC 34.1, RDW Std Deviation 48.8 H, RDW Coeff of Adiel 15.1 H, Plt Count 265, MPV 9.2, Immature Gran % (Auto) 1.000 H, Neut % (Auto) 72.2 H, Lymph % (Auto) 19.0, [place] % (Auto) 5.8, Eos % (Auto) 1.8, Baso % (Auto) 0.2, Absolute Neuts (auto) 9.0 H, Absolute Lymphs (auto) 2.37, Nucleated RBC % 0 Current Medications Acetaminophen (Acetaminophen 500 Mg Tablet) 500 - 1,000 mg PO Q6H PRN PRN PRN Reason: Pain Score 1-3 Last Admin: 07/17/20 06:02 Dose: 1,000 mg Documented by: Bisacodyl (Bisacodyl 10 Mg Suppository) 10 mg RECTAL UD PRN PRN Reason: If no BM Dibucaine (Dibucaine 30 Gm Tube) 1 applic TOPICAL TID PRN PRN; Protocol PRN Reason: Discomfort Hydrocortisone (Hydrocortisone 2.5% Crm) 1 applic TOPICAL TID PRN PRN; Protocol PRN Reason: Discomfort Ibuprofen (Ibuprofen 600 Mg Tablet) 600 mg PO Q6H PRN PRN PRN Reason: Pain Score 1-3 Last Admin: 07/18/20 02:09 Dose: 600 mg Documented by: Methylergonovine Maleate (Methylergonovine 0.2 Mg/Ml Ampul) 0.2 mg IM X1 PRN PRN Reason: Excess bleeding/uterine atony Ondansetron HCl (Ondansetron 4 Mg/2 Ml Vial) 4 mg IV Q4H PRN PRN PRN Reason: NAUSEA Senna/Docusate Sodium (Senna/Docusate Sodium 1 Tablet) 1 - 2 tablet PO DAILY PRN PRN PRN Reason: Constipation Simethicone (Simethicone 80 Mg Tablet) 80 mg PO PCHS PRN PRN Reason: Indigestion/Stomach pain Sodium Chloride (0.9% Saline Lock 10 Ml Syringe) 5 - 15 ml IV UD PRN PRN Reason: SALINE FLUSH Last Admin: 07/17/20 15:35 Dose: 10 ml Documented by: Medical Necessity - Tobacco Use Smoking Status: Never smoker Assessment/Plan All Active Problems (Last Reviewed 06/29/20 @ 16:[address] Curt Barrios MD) (spontaneous vaginal delivery) (Acute) Placental tear (Acute) Palpitations (Acute) (Acute) Chest pain (Acute) Abnormal uterine bleeding due to endometrial polyp (Acute) Doing well day #2 status post hemorrhage and 2 units of packed red blood cells. Will discharge to home with routine instructions. Instructed patient to take iron sulfate 325 mg 3 times daily for several weeks.
[2020-07-18 12:00] VITALS: BP 125/70; PULSE 91; RESP 16; TEMP 36.6; O2SAT 98
== END 2020-07-18 14:35 | disposition home or self-care (01) | DRG 806 ==
PROVIDERS: Admitting Provider Obstetrics & Gynecology; PCP Family Medicine; Referring Provider Obstetrics & Gynecology; Visit Provider Obstetrics & Gynecology
DX: O77.0 Labor and delivery complicated by meconium in amniotic fluid (principal); O72.1 Other immediate postpartum hemorrhage; Z37.0 Single live birth; D62 Acute posthemorrhagic anemia; O36.8130 Decreased fetal movements, third trimester, not applicable or unspecified; Z3A.38 38 weeks gestation of pregnancy; O76 Abnormality in fetal heart rate and rhythm complicating labor and delivery; O69.81X0 Labor and delivery complicated by cord around neck, without compression, not applicable or unspecified; O70.1 Second degree perineal laceration during delivery; O99.02 Anemia complicating childbirth
CPT/HCPCS: 59025; 59050; 76815; 85025; 85027; 85384; 85730; 86850; 86900; 86901; 86920; 99218; J7030; J7120; P9016; A4216; G0378

== ENCOUNTER → 2021-12-20 | Outpatient (CLI) | payer SELFPAY ==
--- NOTE | 2021-12-20 | EMB_PTH ---
PATIENT: KEITH HOYOS LOC: [facility] U#:[id number] AGE/SX: 46/F ROOM: RE12/20/[address]: Dr. Juliet Stewart MD : 1975 BED: DIS: 12/20/2021 SPEC #: [id number] RECD: 12/20/21 14:52 STATUS: KEL REDoyle #: [id number] BECKY: 12/20/21 00:[address]: Juliet Flowers DEPT: SURGICAL PATHOLOGY RECD BY: Sebastian Arguello ENTERED: 12/21/21 11:51 SP TYPE: ENDOM BX/C CARIDAD DR: Dr. Don Burroughs MD Tissues: Endometrium, NOS Procedures: Surgery Specimen Level IV HEADER OPERATION: Endometrial biopsy PRE-OP DIAGNOSIS: Abnormal bleeding TISSUE SUBMITTED: Endometrial biopsy MICROSCOPIC DIAGNOSIS Endometrial biopsy: Proliferative endometrium. SJ:terrie 12/22/2021 COMMENT Please make reference to previous specimen ([id number]) endometrial curettings with diagnosis of proliferative endometrium with glandular and stroma breakdown. MICROSCOPIC DESCRIPTION Slides are reviewed. GROSS DESCRIPTION Received is one container labeled with the patient's name and not further designated. The specimen consists of multiple fragments of hemorrhagic soft tissue mixed with mucoid tissue that in aggregate measure 2.5 x 2 x 0.1 cm. The specimen is totally submitted in one cassette. / SJ:terrie 12/21/2021 TC:4 CPT: 95547
[2021-12-20 14:52] LABS: Hematocrit 41.1 % (37-47); Hemoglobin 13.5 g/dL (12.0-15.0); Mean Corp Hgb Conc 32.8 g/dL (32-36); Mean Corpuscular Volume 91.3 fL (81-99); Platelet Count 467 K/mm3 (150-450); RBC Distribution Width CV 13.1 % (11.6-14.6); RBC Distribution Width SD 43.4 fl (35.1-43.9); White Blood Count 6.5 K/mm3 (4.4-11.0)
[2021-12-20 15:29] LABS: Thyroid Stim Hormone (TSH) 1.75 uIU/mL (0.358-3.74)
[2021-12-28 11:26] LABS: HPV APTIMA, High Risk Negative (Negative)
== END | disposition home or self-care (01) ==
LOC: WOBLAB 14:03
PROVIDERS: PCP Family Medicine; Visit Provider Obstetrics & Gynecology
DX: N92.1 Excessive and frequent menstruation with irregular cycle (principal); Z12.4 Encounter for screening for malignant neoplasm of cervix
CPT/HCPCS: 36415; 84443; 85027; 87624; 88175; 88305; G0145